=== PATIENT | male | born 1955 | race Caucasian/White ===

== ENCOUNTER 2018-05-13 07:40 | Observation (INO) | payer MEDICARE, OTHER ==
[2018-05-12 11:32] LABS: BASOPHILS % 0.8 % (0.0-1.0); EOSINOPHILS # (AUTO) 0.1 (0.0-0.4); EOSINOPHILS % 2.1 % (0.0-6.0); HEMATOCRIT 44.8 % (38.2-49.6); HEMOGLOBIN 15.6 g/dL (14.0-18.0); LYMPHOCYTES # (AUTO) 1.2 (1.0-3.2); LYMPHOCYTES % 23.3 % (18.0-39.1); MEAN CORPUSCULAR HEMOGLOBIN 33.3 pg (28-32); MEAN CORPUSCULAR HGB CONC 34.8 g/dL (31-35); MEAN CORPUSCULAR VOLUME 95.7 fL (81-99); MONOCYTES # (AUTO) 0.5 (0.2-0.8); MONOCYTES % 9.5 % (4.4-11.3); NEUTROPHILS # (AUTO) 3.3 (2.1-6.9); NEUTROPHILS % 64.1 % (38.7-80.0); PLATELET COUNT 162 x10e3/uL (140-360); RED BLOOD COUNT 4.68 x10e6/uL (4.3-5.7); RED CELL DISTRIBUTION WIDTH 13.7 % (11.7-14.4)
--- NOTE | 2018-05-12 11:36 | Diagnostic Imaging Report ---
PROCEDURE: Frontal and lateral views of the chest. COMPARISON: Chest radiograph 04/07/17. INDICATIONS: Pre-op chest radiograph FINDINGS: Lines/tubes: None. Lungs: The lungs are well inflated and clear. There is no evidence of pneumonia or pulmonary edema. Pleura: There is no pleural effusion or pneumothorax. Heart and mediastinum: The heart and the mediastinum are normal. Bones: No acute bony abnormality. IMPRESSION: No acute cardiopulmonary disease. Dictated by: Electronically approved by: ISIDORO WONG M.D. on 05/12/2018 at 11:43
[2018-05-12 11:43] LABS: INR 1.1; PARTIAL THROMBOPLASTIN TIME 25.6 seconds (23.8-35.5); PROTHROMBIN TIME 13.4 seconds (11.9-14.5)
[2018-05-12 11:50] LABS: ANION GAP 13.8 mmol/L (8-16); BLOOD UREA NITROGEN 13 mg/dL (7-26); BUN/CREATININE RATIO 15 (6-25); CALCIUM 9.5 mg/dL (8.4-10.2); CARBON DIOXIDE 27 mmol/L (22-29); CHLORIDE 104 mmol/L (98-107); CREATININE, SERUM 0.89 mg/dL (0.72-1.25); EST GLOMERULAR FILTRATION RATE > 60 ML/MIN (60-); GLUCOSE 113 mg/dL (74-118); POTASSIUM 3.8 mmol/L (3.5-5.1); SODIUM 141 mmol/L (136-145)
--- NOTE | 2018-05-12 11:55 | Diagnostic Imaging Report ---
Exam: Lumbar spine MRI without IV contrast History: Right L4-L5 foraminal disc herniation. Comparison studies: None Technique: Sagittal and axial T2 , sagittal T1 and IR, axial spin density oblique and coronal T2. Intravenous contrast: None Findings: Number of lumbar vertebral bodies: 5. Alignment: Normal lordosis. No scoliosis. Soft tissues: No T2 hyperintense inflammatory changes. Paraspinal muscles: No signal abnormalities. Well-preserved. No atrophic changes Lower thoracic cord: Normal in signal and morphology. The tip of the conus is at the inferior L1 level. Cauda equina: No masses. No arachnoiditis. Vertebrae: No compression fractures or infection. Small incidental T1 hyperintense vertebral body hemangiomas at L1 and L3. Degenerative changes: L1-L2: No abnormalities L2-L3: Asymmetric right bulging disc without significant canal or foraminal stenosis. L3-L4: Mild loss of T2 disc signal. Symmetric disc bulge and mild facet arthrosis without significant canal or foraminal stenosis. L4-L5: Loss of T2 disc signal. Symmetric disc bulge with small central disc protrusion and bilateral facet arthrosis with minimal canal stenosis and mild bilateral foraminal stenosis. L5-S1: Mildly degenerated disc with loss of disc height and loss of T2 disc signal. Disc osteophyte asymmetric to the right and facet arthrosis with mild bilateral foraminal stenosis. No significant canal stenosis. Disc osteophyte complex abuts the right L5 extra foraminal nerve root. IMPRESSION: 1. Mildly degenerated disks from L3 to S1, greatest at L5-S1. 2. Small L4-L5 central disc protrusion. 3. Mild bilateral L4-L5 and L5-S1 degenerative foraminal stenosis. 4. No significant canal stenosis. Signed by: Dr. Jose Juan Billy M.D. on 05/12/2018 11:52 AM
[~2018-05-13] VITALS: Ht 177.8 cm; Wt 93.1 kg
[~2018-05-13 07:40] MED LIST: ACETAMINOPHEN 1000 MG/100 ML 100 ML IV ONE; AMBIEN10 MG PO; BACITRACIN 50,000 UNIT VIAL ONE; BUPIVACAINE 0.5%/EPI 30 ML SDV INJ ONE; GELATIN SPONGE SZ 100 ONE; KLONOPIN1 MG PO; LEXAPRO10 MG PO; LIDOCAINE HCL (LTA) 4 ML SOLN ONE; THROMBIN FOR SOLN 5,000 UNIT VIAL ONE; TYLENOL WITH C1 EACH PO
[2018-05-13] MEDS ORDERED: CEFAZOLIN SOD 1 GM VIAL ONE (08:39)
[2018-05-13] MEDS ORDERED: IBUPROFEN200 MG PO (09:00)
[2018-05-13] MEDS ORDERED: MORPHINE SULFATE 5 MG/ML VIAL IM PRN (11:15)
[2018-05-13] MEDS ORDERED: CARISOPRODOL 350 MG TAB PO PRN (11:15)
[2018-05-13] MEDS ORDERED: HYDROMORPHONE 2MG/ML 2 MG/ML ML IV PRN (11:15)
[2018-05-13] MEDS ORDERED: PROMETHAZINE HCL (IM) 25 MG/ML VIAL IM PRN (11:15)
[2018-05-13] MEDS ORDERED: ACETAMINOPHEN 325 MG TAB PO PRN (11:15)
[2018-05-13] MEDS ORDERED: IBUPROFEN 200 MG TAB PO PRN (11:15)
[2018-05-13] MEDS ORDERED: ONDANSETRON HCL INJ 2 MG/ML VIAL IV PRN (11:15)
[2018-05-13] MEDS ORDERED: MAGNESIUM/ALUMINUM/SIMETHICONE 30 ML UDC PO PRN (11:15)
[2018-05-13] MEDS ORDERED: FENTANYL CITRATE/PF 100MCG/2 ML INJ ONE ×2 (11:27→14:23)
[2018-05-13] MEDS ORDERED: MORPHINE SULFATE 2 MG/ML SYR ONE (11:37)
[2018-05-13 12:19] VITALS: BP 173/85
[2018-05-13 12:34] VITALS: BP 173/85
[2018-05-13 12:35] VITALS: BP 173/85
[2018-05-13] MEDS: LACTATED RINGER'S 1,000 ML IV SCH ×2 (13:11→19:35)
[2018-05-13] MEDS ORDERED: LIDOCAINE HCL 2% LOCAL INJ 5 ML SDV VIAL INJ ONE (13:34)
[2018-05-13] MEDS ORDERED: GLYCOPYRROLATE INJ 1MG/ 5 ML SYR ONE (13:34)
[2018-05-13] MEDS ORDERED: NEOSTIGMINE 5 MG/5ML SYR ONE (13:34)
[2018-05-13] MEDS ORDERED: ROCURONIUM BROMIDE 10 MG/ML 5ML VIAL ONE (13:34)
[2018-05-13] MEDS ORDERED: ONDANSETRON HCL INJ 2 MG/ML VIAL ONE (13:34)
[2018-05-13] MEDS ORDERED: PROPOFOL IV EMULSION 10 MG/ML 20 ML VIAL ONE (13:34)
[2018-05-13] MEDS ORDERED: DESFLURANE 240 ML BTL INH ONE (13:34)
[2018-05-13] MEDS ORDERED: DEXAMETHASONE SOD PHOS INJ 4 MG/ML VIAL ONE (13:34)
[2018-05-13] MEDS ORDERED: CEFAZOLIN SOD 1 GM/D5W 50ML 50 ML IV SCH (14:00)
[2018-05-13] MEDS ORDERED: PNEUMOCOCCAL VACCINE POLYVALENT 23 MCG/0.5 ML VIAL IM NR (14:00)
--- NOTE | 2018-05-13 14:13 | Operative Report ---
DATE OF PROCEDURE: May 13, 2018 PREOPERATIVE DIAGNOSES: Right L4-5 intraforaminal chronic disk herniation with L4 radiculopathy. POSTOPERATIVE DIAGNOSES: Right L4-5 intraforaminal chronic disk herniation with L4 radiculopathy. PROCEDURE: Right L4-5 lateral foraminotomy and microsurgical diskectomy. INDICATIONS: The patient is a 63-year-old man who presents with a chronic right L4-5 intraforaminal disk herniation with low back pain and persistent right L4 radiculopathy. The patient was seen in the operating room for lateral foraminotomy and microsurgical diskectomy. 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 PROCEDURE: After induction of general anesthesia, the patient was placed on the operating table in prone position over a Martín frame. The lumbar region was prepped and draped in a sterile fashion. A preoperative x-ray was obtained. A small paramedian incision was created. The lumbar fascia was opened to the right of the midline and dissection was carried out to expose the lateral aspect of the right L4 lamina in the region of the pars interarticularis of L4. Two additional intraoperative x-rays were obtained to confirm correct localization at L4-5 considering the patient's transitional lumbosacral anatomy and comparing the x-rays to the MRIs. After a satisfactory localization had been obtained, the operating microscope was brought in, retraction was maintained with an Aesculap speculum retractor. A 4-mm andrew sebastian was used to drill the lateral margin of the pars interarticularis at L4 and the superolateral margin of the inferior articular process of L4. A great deal of facet arthropathy was noted involving the L4-5 facet joint. The lateral extension of the ligamentum flavum into the L4 neural foramen was resected and the L4 nerve root was exposed under the L4 pedicle. The epidural veins under the L4 nerve root were bipolar coagulated and divided with microscissors. A ball probe was then passed under the nerve root and used to retrieve the extruded disk material from the right L4 neural foramen, which was removed with a micro pituitary rongeur. The annulus of the disk was then opened within the L4 neural foramen and loose contents of the disk were conservatively evacuated with micro pituitary rongeur. Good decompression of the L4 nerve root had been achieved. The wound was copiously irrigated with Bacitracin solution. A small piece of fat was harvested from the subcutaneous space and placed over the L4 nerve root covered with a piece of Gelfoam. The lumbar fascia was closed with 0 Vicryl sutures. The subcutaneous layer was closed with 2-0 Vicryl sutures. The skin was closed with 3-0 Monocryl sutures in subcuticular fashion. Steri-Strips and a dressing were applied. The patient awakened, extubated, and taken to postanesthesia care unit in stable condition. No intraoperative complications were encountered. Estimated blood loss was 10 mL. Job#: [id number]
[2018-05-13] MEDS ORDERED: MIDAZOLAM HCL 2 MG/2 ML VIAL ONE (14:23)
[2018-05-13 15:45] VITALS: BP 137/68
[2018-05-13] MEDS: CEFAZOLIN SOD 1 GM VIAL IV SCH (17:44)
[2018-05-13 20:00] VITALS: BP 143/66
[2018-05-13 21:00] VITALS: BP 143/66
[2018-05-13] MEDS ORDERED: ZOLPIDEM TARTRATE 5 MG TAB PO PRN (21:00)
[2018-05-13] MEDS: OXYCODONE/ACETAMINOPHEN 5-325 1 EACH TABLET PO PRN (21:05)
[2018-05-14 00:20] VITALS: BP 149/71
[2018-05-14] MEDS: LACTATED RINGER'S 1,000 ML IV SCH (02:10)
[2018-05-14] MEDS: CEFAZOLIN SOD 1 GM VIAL IV SCH ×2 (02:49→10:35)
[2018-05-14] MEDS ORDERED: PNEUMOCOCCAL VACCINE POLYVALENT 23 MCG/0.5 ML VIAL IM ONE (04:45)
[2018-05-14] MEDS ORDERED: PNEUMOCOCCAL VACCINE POLYVALENT 23 MCG/0.5 ML VIAL IM SCH ×2 (04:45→10:00)
[2018-05-14 05:00] VITALS: BP 146/73
[2018-05-14] MEDS: OXYCODONE/ACETAMINOPHEN 5-325 1 EACH TABLET PO PRN (05:35)
[2018-05-14 08:00] VITALS: BP 152/70
[2018-05-14 08:19] VITALS: BP 151/70
== END 2018-05-14 10:50 | disposition home or self-care (01) ==
LOC: OR 07:40 → PACU V 11:16 → IMCU 12:06
PROVIDERS: ADMIT Neurological Surgery; ATTEND Neurological Surgery
DX: M51.16 Intervertebral disc disorders with radiculopathy, lumbar region (principal); K21.9 Gastro-esophageal reflux disease without esophagitis
CPT/HCPCS: 36415; 63047; 71046; 72020; 72148; 80048; 85025; 85610; 85730; 86850; 86900; 88304; 90732; 93005; G0378 ×2; J0690 ×2; J1100; J1170; J2001; J2250; J2270; J2405; J3490; J7120 ×2

== ENCOUNTER 2021-01-19 12:52 | Emergency (ER) | payer MEDICARE, OTHER ==
[~2021-01-19] VITALS: Ht 180.3 cm; Wt 90.7 kg
[~2021-01-19 12:52] MED LIST changes: -ACETAMINOPHEN 1000 MG/100 ML 100 ML IV ONE; -BACITRACIN 50,000 UNIT VIAL ONE; -BUPIVACAINE 0.5%/EPI 30 ML SDV INJ ONE; -GELATIN SPONGE SZ 100 ONE; +IBUPROFEN200 MG PO; -LIDOCAINE HCL (LTA) 4 ML SOLN ONE; -THROMBIN FOR SOLN 5,000 UNIT VIAL ONE
[2021-01-19] MEDS ORDERED: SODIUM CHLORIDE 0.9% 1000ML 1,000 ML IV STA (13:12)
[2021-01-19] MEDS ORDERED: SODIUM CHLORIDE 0.9% 1000ML 1,000 ML ONE (14:03)
[2021-01-19 14:42] VITALS: BP 159/82
== END 2021-01-19 14:48 | disposition home or self-care (01) ==
LOC: FSED 13:14
DX: R31.9 Hematuria, unspecified (principal); N20.0 Calculus of kidney; K21.9 Gastro-esophageal reflux disease without esophagitis; F32.9 Major depressive disorder, single episode, unspecified; G47.30 Sleep apnea, unspecified
CPT/HCPCS: 74177; 80053; 81003; 85025; 85610; 87086; 99284; J7030

== ENCOUNTER → 2021-03-27 | Day surgery (SDC) | payer MEDICARE, OTHER ==
[2021-03-22 10:45] LABS: BASOPHILS % 0.7 % (0.0-1.0); EOSINOPHILS # (AUTO) 0.3 (0.0-0.4); EOSINOPHILS % 5.2 % (0.0-6.0); HEMATOCRIT 44.9 % (38.2-49.6); HEMOGLOBIN 15.1 g/dL (14.0-18.0); LYMPHOCYTES # (AUTO) 1.6 (1.0-3.2); LYMPHOCYTES % 27.9 % (18.0-39.1); MEAN CORPUSCULAR HEMOGLOBIN 32.4 pg (28-32); MEAN CORPUSCULAR HGB CONC 33.6 g/dL (31-35); MEAN CORPUSCULAR VOLUME 96.4 fL (81-99); MONOCYTES # (AUTO) 0.5 (0.2-0.8); MONOCYTES % 9.3 % (4.4-11.3); NEUTROPHILS # (AUTO) 3.3 (2.1-6.9); NEUTROPHILS % 56.7 % (38.7-80.0); PLATELET COUNT 183 x10e3/uL (140-360); RED BLOOD COUNT 4.66 x10e6/uL (4.3-5.7); RED CELL DISTRIBUTION WIDTH 13.6 % (11.7-14.4)
[2021-03-22 11:08] LABS: ANION GAP 14.1 mmol/L (8-16); CALCIUM 9.4 mg/dL (8.4-10.2); CREATININE, SERUM 1.06 mg/dL (0.72-1.25); POTASSIUM 4.1 mmol/L (3.5-5.1)
[~2021-03-27] MED LIST changes: +B&O 60MG R/S 60 MG SUPP PR ONE; +CEFTRIAXONE 1 GM VIAL ONE; +DEXAMETHASONE SOD PHOS INJ 4 MG/ML VIAL ONE; +IOPAMIDOL 300MG/ML 50ML INFUS..BTL IV ONE; +LIDOCAINE HCL 2% LOCAL INJ 5 ML SDV VIAL INJ ONE; +ONDANSETRON HCL INJ 2MG/ML 2ML 2 MG/ML VIAL ONE; +POVIDONE IODINE 0.05% 0.05 % ML PO ONE; +PROPOFOL IV EMULSION 10 MG/ML 20 ML VIAL ONE; +SEVOFLURANE INHAL SOLN 250 ML PEN BTL ONE; +SODIUM CHLORIDE 0.9% 50ML 50 ML ONE; +ZESTRIL10 MG PO
[2021-03-27 12:12] VITALS: BP 160/75
== END | disposition home or self-care (01) ==
LOC: OR 07:29
PROVIDERS: ATTEND Urology
DX: N20.0 Calculus of kidney (principal); N13.30 Unspecified hydronephrosis; N40.0 Benign prostatic hyperplasia without lower urinary tract symptoms; N32.89 Other specified disorders of bladder; G47.33 Obstructive sleep apnea (adult) (pediatric); F32.9 Major depressive disorder, single episode, unspecified; I10 Essential (primary) hypertension; K21.9 Gastro-esophageal reflux disease without esophagitis; Z01.810 Encounter for preprocedural cardiovascular examination; Z01.812 Encounter for preprocedural laboratory examination; Z01.818 Encounter for other preprocedural examination; Z87.891 Personal history of nicotine dependence
CPT/HCPCS: 36415; 50590; 52332; 71046; 74018; 80048; 85025; 93005; C1769; C2617; J0696; J1100; J2001; J2405; J2704; Q9967

== ENCOUNTER → 2021-05-21 | Day surgery (SDC) | payer MEDICARE, OTHER ==
[2021-05-20 09:21] LABS: BASOPHILS # (AUTO) 0.1 (0.0-0.1); BASOPHILS % 1.2 % (0.0-1.0); EOSINOPHILS # (AUTO) 0.3 (0.0-0.4); EOSINOPHILS % 5.9 % (0.0-6.0); HEMATOCRIT 44.1 % (38.2-49.6); HEMOGLOBIN 14.8 g/dL (14.0-18.0); LYMPHOCYTES # (AUTO) 1.5 (1.0-3.2); MEAN CORPUSCULAR HGB CONC 33.6 g/dL (31-35); MEAN CORPUSCULAR VOLUME 98.4 fL (81-99); MONOCYTES # (AUTO) 0.5 (0.2-0.8); MONOCYTES % 9.2 % (4.4-11.3); NEUTROPHILS # (AUTO) 2.8 (2.1-6.9); NEUTROPHILS % 54.5 % (38.7-80.0); PLATELET COUNT 178 x10e3/uL (140-360); RED BLOOD COUNT 4.48 x10e6/uL (4.3-5.7); RED CELL DISTRIBUTION WIDTH 14.5 % (11.7-14.4)
[2021-05-20 09:39] LABS: ANION GAP 13.7 mmol/L (8-16); CALCIUM 9.7 mg/dL (8.4-10.2); CREATININE, SERUM 0.99 mg/dL (0.72-1.25); POTASSIUM 4.7 mmol/L (3.5-5.1)
[~2021-05-21] MED LIST changes: -B&O 60MG R/S 60 MG SUPP PR ONE; -DEXAMETHASONE SOD PHOS INJ 4 MG/ML VIAL ONE; -IOPAMIDOL 300MG/ML 50ML INFUS..BTL IV ONE; -LIDOCAINE HCL 2% LOCAL INJ 5 ML SDV VIAL INJ ONE; -ONDANSETRON HCL INJ 2MG/ML 2ML 2 MG/ML VIAL ONE; -POVIDONE IODINE 0.05% 0.05 % ML PO ONE; -PROPOFOL IV EMULSION 10 MG/ML 20 ML VIAL ONE; -SEVOFLURANE INHAL SOLN 250 ML PEN BTL ONE; -SODIUM CHLORIDE 0.9% 50ML 50 ML ONE
[2021-05-21 09:00] VITALS: BP 146/76
== END | disposition home or self-care (01) ==
LOC: OR 05:38
PROVIDERS: ATTEND Urology
DX: N20.0 Calculus of kidney (principal); Z96.0 Presence of urogenital implants; G47.33 Obstructive sleep apnea (adult) (pediatric); I10 Essential (primary) hypertension; Z01.812 Encounter for preprocedural laboratory examination; Z01.818 Encounter for other preprocedural examination; Z20.822 Contact with and (suspected) exposure to COVID-19
CPT/HCPCS: 36415; 50590; 74018; 80048; 85025; J0696; U0002

== ENCOUNTER → 2021-06-14 | Day surgery (SDC) | payer MEDICARE, OTHER ==
[2021-06-12 10:46] LABS: BASOPHILS # (AUTO) 0.1 (0.0-0.1); BASOPHILS % 0.9 % (0.0-1.0); EOSINOPHILS # (AUTO) 0.3 (0.0-0.4); HEMATOCRIT 42.9 % (38.2-49.6); HEMOGLOBIN 14.5 g/dL (14.0-18.0); LYMPHOCYTES # (AUTO) 1.7 (1.0-3.2); MEAN CORPUSCULAR HEMOGLOBIN 33.6 pg (28-32); MEAN CORPUSCULAR HGB CONC 33.8 g/dL (31-35); MEAN CORPUSCULAR VOLUME 99.5 fL (81-99); MONOCYTES # (AUTO) 0.5 (0.2-0.8); NEUTROPHILS % 53.7 % (38.7-80.0); PLATELET COUNT 169 x10e3/uL (140-360); RED BLOOD COUNT 4.31 x10e6/uL (4.3-5.7); RED CELL DISTRIBUTION WIDTH 13.9 % (11.7-14.4)
[2021-06-12 11:19] LABS: CALCIUM 11.8 mg/dL (8.4-10.2); CREATININE, SERUM 1.09 mg/dL (0.72-1.25)
[~2021-06-14] MED LIST changes: +BELLADONNA/OPIUM 30 MG SUPP RC ONE; +FLOMAX0.4 MG PO; +IOPAMIDOL 300MG/ML 50ML INFUS..BTL IV ONE; +SODIUM CHLORIDE 0.9% 50ML 50 ML ONE
[2021-06-14 11:40] VITALS: BP 156/83
== END | disposition home or self-care (01) ==
LOC: OR 08:05
PROVIDERS: ATTEND Urology
DX: N20.0 Calculus of kidney (principal); Z46.6 Encounter for fitting and adjustment of urinary device; N40.1 Benign prostatic hyperplasia with lower urinary tract symptoms; N13.8 Other obstructive and reflux uropathy; G47.33 Obstructive sleep apnea (adult) (pediatric); I10 Essential (primary) hypertension; F32.9 Major depressive disorder, single episode, unspecified; Z01.812 Encounter for preprocedural laboratory examination; Z01.818 Encounter for other preprocedural examination; Z20.822 Contact with and (suspected) exposure to COVID-19
CPT/HCPCS: 36415; 52352; 74018; 74420; 80048; 84550; 85025; C1758; C1769; J0696; Q9967; U0002

== ENCOUNTER 2021-10-30 09:40 | Inpatient (IN) | payer MEDICARE, OTHER ==
[2021-10-28 15:44] LABS: BASOPHILS # (AUTO) 0.1 (0.0-0.1); BASOPHILS % 0.8 % (0.0-1.0); EOSINOPHILS # (AUTO) 0.2 (0.0-0.4); EOSINOPHILS % 3.5 % (0.0-6.0); HEMATOCRIT 49.6 % (38.2-49.6); HEMOGLOBIN 16.5 g/dL (14.0-18.0); LYMPHOCYTES # (AUTO) 1.5 (1.0-3.2); LYMPHOCYTES % 23.9 % (18.0-39.1); MEAN CORPUSCULAR HEMOGLOBIN 34.3 pg (28-32); MEAN CORPUSCULAR HGB CONC 33.3 g/dL (31-35); MEAN CORPUSCULAR VOLUME 103.1 fL (81-99); MONOCYTES # (AUTO) 0.5 (0.2-0.8); MONOCYTES % 7.4 % (4.4-11.3); NEUTROPHILS % 64.1 % (38.7-80.0); PLATELET COUNT 171 x10e3/uL (140-360); RED BLOOD COUNT 4.81 x10e6/uL (4.3-5.7)
[2021-10-28 16:00] LABS: ANION GAP 12.1 mmol/L (8-16); CALCIUM 9.5 mg/dL (8.4-10.2); CREATININE, SERUM 1.01 mg/dL (0.72-1.25); POTASSIUM 4.1 mmol/L (3.5-5.1)
[~2021-10-30] VITALS: Ht 180.3 cm; Wt 80.3 kg
[~2021-10-30 09:40] MED LIST changes: -BELLADONNA/OPIUM 30 MG SUPP RC ONE; -CEFTRIAXONE 1 GM VIAL ONE; +CIPRO500 MG PO; -IOPAMIDOL 300MG/ML 50ML INFUS..BTL IV ONE; -SODIUM CHLORIDE 0.9% 50ML 50 ML ONE
[2021-10-30] MEDS ORDERED: GENTAMICIN 80MG/NS 100 ML 200 ML IV ONE (09:48)
[2021-10-30] MEDS ORDERED: PIPERACILLIN/TAZOBACTAM 3.375 GM VIAL ONE (09:49)
[2021-10-30] MEDS ORDERED: SODIUM CHLORIDE 0.9% 50ML 50 ML ONE (09:49)
[2021-10-30] MEDS ORDERED: SODIUM CHLORIDE 0.9% 1000ML 1,000 ML ONE (09:49)
[2021-10-30] MEDS ORDERED: BELLADONNA/OPIUM 30 MG SUPP RC ONE (11:57)
[2021-10-30] MEDS ORDERED: IOPAMIDOL 300MG/ML 50ML INFUS..BTL IV ONE (11:58)
[2021-10-30] MEDS ORDERED: PROPOFOL IV EMULSION 10 MG/ML 20 ML VIAL ONE (13:10)
[2021-10-30] MEDS ORDERED: ONDANSETRON HCL INJ 2MG/ML 2ML 2 MG/ML VIAL ONE (13:10)
[2021-10-30] MEDS ORDERED: SEVOFLURANE INHAL SOLN 250 ML PEN BTL ONE (13:10)
[2021-10-30] MEDS ORDERED: LIDOCAINE HCL 2% LOCAL INJ 5 ML SDV VIAL INJ ONE (13:10)
[2021-10-30] MEDS ORDERED: PHENYLEPHRINE HCL 1% 10 MG/ML VIAL ONE (13:10)
[2021-10-30] MEDS ORDERED: DEXAMETHASONE SOD PHOS INJ 4 MG/ML SDV ONE (13:10)
[2021-10-30] MEDS ORDERED: POVIDONE IODINE 0.05% 0.05 % ML PO ONE (13:10)
[2021-10-30] MEDS ORDERED: ACETAMINOPHEN/CODEINE 300MG - 30MG TAB PO PRN (13:15)
[2021-10-30] MEDS ORDERED: DIPHENHYDRAMINE HCL 25 MG CAP PO PRN (13:15)
[2021-10-30] MEDS ORDERED: PHENAZOPYRIDINE HCL 100 MG TAB PO PRN (13:15)
[2021-10-30] MEDS ORDERED: B&O 60MG R/S 60 MG SUPP PR PRN (13:15)
[2021-10-30] MEDS ORDERED: FENTANYL CITRATE/PF 100MCG/2 ML INJ ONE ×2 (13:42→13:43)
[2021-10-30] MEDS ORDERED: MIDAZOLAM HCL 2 MG/2 ML VIAL ONE (13:43)
[2021-10-30 14:02] LABS: BASOPHILS % 0.7 % (0.0-1.0); EOSINOPHILS # (AUTO) 0.2 (0.0-0.4); EOSINOPHILS % 2.8 % (0.0-6.0); HEMATOCRIT 49.7 % (38.2-49.6); HEMOGLOBIN 16.4 g/dL (14.0-18.0); LYMPHOCYTES # (AUTO) 1.4 (1.0-3.2); LYMPHOCYTES % 25.9 % (18.0-39.1); MEAN CORPUSCULAR HEMOGLOBIN 34.7 pg (28-32); MEAN CORPUSCULAR VOLUME 105.1 fL (81-99); MONOCYTES # (AUTO) 0.3 (0.2-0.8); NEUTROPHILS # (AUTO) 3.5 (2.1-6.9); NEUTROPHILS % 64.7 % (38.7-80.0); PLATELET COUNT 152 x10e3/uL (140-360); RED BLOOD COUNT 4.73 x10e6/uL (4.3-5.7); RED CELL DISTRIBUTION WIDTH 14.1 % (11.7-14.4)
[2021-10-30 14:24] LABS: ANION GAP 14.1 mmol/L (8-16); CALCIUM 8.8 mg/dL (8.4-10.2); CREATININE, SERUM 0.95 mg/dL (0.72-1.25); POTASSIUM 4.1 mmol/L (3.5-5.1)
[2021-10-30] MEDS: D5.45%NS/KCL 20MEQ 1,000 ML IV SCH ×2 (16:20→22:25)
[2021-10-30] MEDS ORDERED: DOCUSATE SODIUM 100 MG CAP PO SCH (17:00)
[2021-10-30 17:17] VITALS: BP 177/78
[2021-10-30 20:00] VITALS: BP 152/70
[2021-10-30] MEDS: DOCUSATE SODIUM 100 MG CAP PO SCH (20:15)
[2021-10-30] MEDS: PIPERACILLIN/TAZOBACTAM 3.375 GM in SODIUM CHLORIDE 0.9% 50ML 50 ML IV SCH (20:15)
[2021-10-31] VITALS (9 sets, daily range): BP systolic 149–170; BP diastolic 73–116
[2021-10-31] MEDS: PIPERACILLIN/TAZOBACTAM 3.375 GM in SODIUM CHLORIDE 0.9% 50ML 50 ML IV SCH ×3 (04:06→20:22)
[2021-10-31] MEDS: D5.45%NS/KCL 20MEQ 1,000 ML IV SCH ×3 (04:39→22:26)
[2021-10-31 05:49] LABS: BASOPHILS % 0.2 % (0.0-1.0); HEMATOCRIT 45.6 % (38.2-49.6); HEMOGLOBIN 15.5 g/dL (14.0-18.0); LYMPHOCYTES # (AUTO) 1.3 (1.0-3.2); LYMPHOCYTES % 12.2 % (18.0-39.1); MEAN CORPUSCULAR HEMOGLOBIN 34.6 pg (28-32); MEAN CORPUSCULAR VOLUME 101.8 fL (81-99); MONOCYTES # (AUTO) 0.7 (0.2-0.8); MONOCYTES % 6.6 % (4.4-11.3); NEUTROPHILS # (AUTO) 8.5 (2.1-6.9); NEUTROPHILS % 80.7 % (38.7-80.0); PLATELET COUNT 175 x10e3/uL (140-360); RED BLOOD COUNT 4.48 x10e6/uL (4.3-5.7); RED CELL DISTRIBUTION WIDTH 13.2 % (11.7-14.4)
[2021-10-31 06:12] LABS: ALBUMIN 3.2 g/dL (3.5-5.0); ALBUMIN/GLOBULIN RATIO 1.3 (0.8-2.0); CALCIUM 8.6 mg/dL (8.4-10.2); CREATININE, SERUM 0.83 mg/dL (0.72-1.25)
[2021-10-31] MEDS: DOCUSATE SODIUM 100 MG CAP PO SCH ×2 (09:24→20:22)
[2021-10-31] MEDS: TAMSULOSIN HCL 0.4 MG CAP PO SCH (09:24)
[2021-10-31] MEDS: LISINOPRIL 10 MG TAB PO SCH (09:26)
[2021-10-31 10:37] LABS: CHOL/HDL RATIO 2.9 (3.9-4.7)
[2021-10-31] MEDS: HYDRALAZINE HCL 20 MG/ML VIAL IV PRN (20:23)
[2021-11-01] VITALS (7 sets, daily range): BP systolic 161–184; BP diastolic 66–82
[2021-11-01] MEDS: PIPERACILLIN/TAZOBACTAM 3.375 GM in SODIUM CHLORIDE 0.9% 50ML 50 ML IV SCH ×3 (03:24→20:31)
[2021-11-01] MEDS: HYDRALAZINE HCL 20 MG/ML VIAL IV PRN ×2 (04:16→18:53)
[2021-11-01 05:58] LABS: BASOPHILS % 0.2 % (0.0-1.0); EOSINOPHILS % 0.1 % (0.0-6.0); HEMATOCRIT 45.9 % (38.2-49.6); HEMOGLOBIN 16.1 g/dL (14.0-18.0); LYMPHOCYTES # (AUTO) 1.4 (1.0-3.2); LYMPHOCYTES % 13.6 % (18.0-39.1); MEAN CORPUSCULAR HEMOGLOBIN 34.3 pg (28-32); MEAN CORPUSCULAR HGB CONC 35.1 g/dL (31-35); MEAN CORPUSCULAR VOLUME 97.9 fL (81-99); MONOCYTES # (AUTO) 0.6 (0.2-0.8); MONOCYTES % 6.1 % (4.4-11.3); NEUTROPHILS # (AUTO) 8.3 (2.1-6.9); NEUTROPHILS % 79.8 % (38.7-80.0); PLATELET COUNT 172 x10e3/uL (140-360); RED BLOOD COUNT 4.69 x10e6/uL (4.3-5.7); RED CELL DISTRIBUTION WIDTH 13.2 % (11.7-14.4)
[2021-11-01 06:21] LABS: ALANINE AMINOTRANSFERASE 42 IU/L (0-55); ALBUMIN 3.4 g/dL (3.5-5.0); ALBUMIN/GLOBULIN RATIO 1.3 (0.8-2.0); ALKALINE PHOSPHATASE 57 IU/L (40-150); ANION GAP 11.6 mmol/L (8-16); CARBON DIOXIDE 23 mmol/L (22-29); CHLORIDE 110 mmol/L (98-107); CREATININE, SERUM 0.84 mg/dL (0.72-1.25); EST GLOMERULAR FILTRATION RATE 91 ML/MIN (60-); GLUCOSE 137 mg/dL (74-118); POTASSIUM 3.6 mmol/L (3.5-5.1); SODIUM 141 mmol/L (136-145)
[2021-11-01 06:22] LABS: BUN/CREATININE RATIO 6 (6-25)
[2021-11-01 06:32] LABS: BLOOD UREA NITROGEN < 5 mg/dL (7-26)
[2021-11-01] MEDS: DOCUSATE SODIUM 100 MG CAP PO SCH ×3 (09:05→20:33)
[2021-11-01] MEDS: TAMSULOSIN HCL 0.4 MG CAP PO SCH (09:05)
[2021-11-01] MEDS: LISINOPRIL 10 MG TAB PO SCH (09:06)
[2021-11-01] MEDS ORDERED: ONDANSETRON HCL INJ 2MG/ML 2ML 2 MG/ML VIAL IV PRN (13:30)
[2021-11-01] MEDS ORDERED: HYDRALAZINE HCL 20 MG/ML VIAL IV ONE (14:00)
[2021-11-01] MEDS: D5.45%NS/KCL 20MEQ 1,000 ML IV SCH (14:14)
[2021-11-01] MEDS: AMLODIPINE BESYLATE 5 MG TAB PO SCH (16:23)
[2021-11-01] MEDS ORDERED: LORAZEPAM INJ 2 MG/ML VIAL IV PRN (22:30)
[2021-11-01] MEDS ORDERED: METOPROLOL TARTRATE 25 MG TAB PO ONE (22:30)
[2021-11-01] MEDS ORDERED: MULTIVITAMINS- 12 INJECTION 10 ML, FOLIC ACID MDV 1 MG, THIAMINE HCL INJ 100 MG in SODI... IV ONE (22:30)
[2021-11-01] MEDS ORDERED: SODIUM CHLORIDE 0.9% 1000ML 1,000 ML ONE (22:51)
[2021-11-01] MEDS ORDERED: THIAMINE HCL INJ 100 MG/ML 2ML VIAL ONE (22:51)
[2021-11-01] MEDS ORDERED: FOLIC ACID 5 MG/ML VIAL ONE (22:54)
[2021-11-01] MEDS ORDERED: MULTIVITAMINS INJECTION ONE (22:55)
[2021-11-01] MEDS: ONDANSETRON HCL 4 MG ORAL DISINTEGRATING TAB PO PRN (23:12)
[2021-11-02 00:24] VITALS: BP 153/69
[2021-11-02] MEDS: PIPERACILLIN/TAZOBACTAM 3.375 GM in SODIUM CHLORIDE 0.9% 50ML 50 ML IV SCH (03:37)
[2021-11-02 04:00] VITALS: BP 176/88
[2021-11-02] MEDS: HYDRALAZINE HCL 20 MG/ML VIAL IV PRN (05:34)
[2021-11-02 06:41] LABS: BASOPHILS % 0.3 % (0.0-1.0); EOSINOPHILS % 0.2 % (0.0-6.0); HEMATOCRIT 43.8 % (38.2-49.6); HEMOGLOBIN 15.1 g/dL (14.0-18.0); LYMPHOCYTES # (AUTO) 1.5 (1.0-3.2); LYMPHOCYTES % 13.4 % (18.0-39.1); MEAN CORPUSCULAR HEMOGLOBIN 34.3 pg (28-32); MEAN CORPUSCULAR HGB CONC 34.5 g/dL (31-35); MEAN CORPUSCULAR VOLUME 99.5 fL (81-99); MONOCYTES # (AUTO) 0.8 (0.2-0.8); MONOCYTES % 7.3 % (4.4-11.3); NEUTROPHILS # (AUTO) 8.9 (2.1-6.9); PLATELET COUNT 173 x10e3/uL (140-360); RED CELL DISTRIBUTION WIDTH 13.4 % (11.7-14.4)
[2021-11-02 07:01] LABS: ALBUMIN 3.3 g/dL (3.5-5.0); ALBUMIN/GLOBULIN RATIO 1.1 (0.8-2.0); ANION GAP 13.4 mmol/L (8-16); CALCIUM 9.2 mg/dL (8.4-10.2); CREATININE, SERUM 0.76 mg/dL (0.72-1.25); POTASSIUM 3.4 mmol/L (3.5-5.1)
[2021-11-02 07:55] VITALS: BP 153/66
[2021-11-02] MEDS: DOCUSATE SODIUM 100 MG CAP PO SCH (09:22)
[2021-11-02] MEDS: AMLODIPINE BESYLATE 5 MG TAB PO SCH (09:22)
[2021-11-02] MEDS: TAMSULOSIN HCL 0.4 MG CAP PO SCH (09:22)
[2021-11-02] MEDS ORDERED: POTASSIUM CHLORIDE 20 MEQ TAB CR PO NR (09:32)
[2021-11-02] MEDS: LISINOPRIL 10 MG TAB PO SCH (09:35)
[2021-11-02 09:36] VITALS: BP 153/66
[2021-11-02] MEDS ORDERED: METOPROLOL TART25 MG PO (09:38)
[2021-11-02] MEDS ORDERED: VITAMIN B-1100 M1 PO (09:39)
[2021-11-02] MEDS ORDERED: FOLIC ACID0.4 MG PO (09:39)
[2021-11-02] MEDS ORDERED: NORVASC5 MG PO (09:43)
[2021-11-02] MEDS ORDERED: ONDANSETRON ODT4 MG PO (09:49)
[2021-11-02] MEDS ORDERED: ONDANSETRON HCL INJ 2MG/ML 2ML 2 MG/ML VIAL IV PRN (10:00)
[2021-11-02] MEDS: ONDANSETRON HCL 4 MG ORAL DISINTEGRATING TAB PO PRN (10:25)
[2021-11-02 11:29] VITALS: BP 178/73
== END 2021-11-02 11:37 | disposition home or self-care (01) | DRG 713 ==
LOC: OR 09:40 → PACU V 13:09 → MED/SURG 15:09
PROVIDERS: ADMIT Internal Medicine; ATTEND Internal Medicine
PROC: 0V508ZZ Destruction of Prostate, Via Natural or Artificial Opening Endoscopic (ICD-10-PCS; 2021-10-30)
PROC: BT141ZZ Fluoroscopy of Kidneys, Ureters and Bladder using Low Osmolar Contrast (ICD-10-PCS; principal; 2021-10-30 11:30)
DX: N40.1 Benign prostatic hyperplasia with lower urinary tract symptoms (principal); F10.930 Alcohol use, unspecified with withdrawal, uncomplicated; N13.8 Other obstructive and reflux uropathy; I10 Essential (primary) hypertension; N20.0 Calculus of kidney; Z87.442 Personal history of urinary calculi; R94.5 Abnormal results of liver function studies; Z20.822 Contact with and (suspected) exposure to COVID-19; R31.29 Other microscopic hematuria; Z87.440 Personal history of urinary (tract) infections
CPT/HCPCS: 36415; 74420; 80048; 80053; 80061; 82948; 83036; 83735; 85025; 93005; 94799; 96361; C1758; J0360; J1100; J1580; J2001; J2060; J2250; J2370; J2405; J2543; J3010; J3411; J7030; Q0162; U0002

== ENCOUNTER 2021-11-09 16:03 | Emergency (ER) | payer MEDICARE, OTHER ==
[~2021-11-09] VITALS: Ht 180.3 cm; Wt 80.3 kg
[~2021-11-09 16:03] MED LIST changes: +FOLIC ACID0.4 MG PO; +METOPROLOL TART25 MG PO; +NORVASC5 MG PO; +ONDANSETRON ODT4 MG PO; +VITAMIN B-1100 M1 PO
[2021-11-09] MEDS ORDERED: SODIUM CHLORIDE 0.9% 1000ML 1,000 ML IV STA (16:28)
[2021-11-09 17:04] LABS: BASOPHILS # (AUTO) 0.1 (0.0-0.1); BASOPHILS % 0.7 % (0.0-1.0); EOSINOPHILS # (AUTO) 0.2 (0.0-0.4); EOSINOPHILS % 2.8 % (0.0-6.0); HEMATOCRIT 45.5 % (38.2-49.6); HEMOGLOBIN 15.3 g/dL (14.0-18.0); LYMPHOCYTES # (AUTO) 1.6 (1.0-3.2); LYMPHOCYTES % 19.2 % (18.0-39.1); MEAN CORPUSCULAR HEMOGLOBIN 34.5 pg (28-32); MEAN CORPUSCULAR HGB CONC 33.6 g/dL (31-35); MEAN CORPUSCULAR VOLUME 102.7 fL (81-99); MONOCYTES # (AUTO) 0.6 (0.2-0.8); MONOCYTES % 7.4 % (4.4-11.3); NEUTROPHILS # (AUTO) 5.7 (2.1-6.9); NEUTROPHILS % 69.7 % (38.7-80.0); PLATELET COUNT 285 x10e3/uL (140-360); RED BLOOD COUNT 4.43 x10e6/uL (4.3-5.7)
[2021-11-09 17:14] LABS: INR 0.95; PROTHROMBIN TIME 13.3 seconds (11.9-14.5)
[2021-11-09 17:15] LABS: PARTIAL THROMBOPLASTIN TIME 27.5 seconds (23.8-35.5)
[2021-11-09 17:27] LABS: ALANINE AMINOTRANSFERASE 21 IU/L (0-55); ALBUMIN 3.5 g/dL (3.5-5.0); ALBUMIN/GLOBULIN RATIO 1.1 (0.8-2.0); ALKALINE PHOSPHATASE 55 IU/L (40-150); ANION GAP 14.4 mmol/L (8-16); BLOOD UREA NITROGEN 13 mg/dL (7-26); BUN/CREATININE RATIO 14 (6-25); CALCIUM 9.4 mg/dL (8.4-10.2); CARBON DIOXIDE 27 mmol/L (22-29); CHLORIDE 100 mmol/L (98-107); CREATINE KINASE 29 IU/L (30-200); CREATININE, SERUM 0.94 mg/dL (0.72-1.25); EST GLOMERULAR FILTRATION RATE 80 ML/MIN (60-); GLUCOSE 205 mg/dL (74-118); POTASSIUM 3.4 mmol/L (3.5-5.1); SODIUM 138 mmol/L (136-145)
[2021-11-09 17:29] LABS: B-TYPE NATRIURETIC PEPTIDE2 < 10.0 pg/mL (0-100)
[2021-11-09 17:35] LABS: CLARITY,URINE HAZY (CLEAR); COLOR,URINE YELLOW (YELLOW); KETONES,URINE NEGATIVE (NEGATIVE); LEUKOCYTE ESTERASE ,URINE TRACE (NEGATIVE); NITRITE,URINE NEGATIVE (NEGATIVE); PROTEIN,URINE DIPSTICK 2+ (NEGATIVE); URINE UROBILINOGEN 0.2 mg/dL (0.2 - 1)
[2021-11-09 17:36] LABS: BACTERIA,URINE FEW /HPF; EPITHELIAL CELLS,URINE FEW /LPF; RBC,URINE 21-50 /HPF (0-5)
[2021-11-09 18:06] VITALS: BP 140/71
== END 2021-11-09 18:09 | disposition home or self-care (01) ==
LOC: ER 16:29
DX: Z46.6 Encounter for fitting and adjustment of urinary device (principal); I10 Essential (primary) hypertension
CPT/HCPCS: 36415; 51700; 71045; 80053; 81001; 82550; 82553; 83605; 83880; 84484; 85025; 85610; 85730; 87040; 87086; 99283; J7030; 93005